=== PATIENT | female | born 1980 | race African-American/Black ===

== ENCOUNTER 2018-05-13 05:10 | Day surgery (SDC) | payer OTHER ==
[2018-05-11 13:07] VITALS: BMI 42.5
[2018-05-13] MEDS ORDERED: DEXAMETHASONE SOD PHOSPHATE 4 MG/1 ML VIAL ONE (11:07)
[2018-05-13] MEDS ORDERED: LIDOCAINE HCL/PF 2% SDV 5ML VIAL ONE (11:08)
[2018-05-13] MEDS ORDERED: MIDAZOLAM HCL 2 MG/2 ML SINGLE DOSE VIAL ONE (11:08)
[2018-05-13] MEDS ORDERED: PROPOFOL 20 ML ONE ×2 (11:08)
[2018-05-13] MEDS ORDERED: SUCCINYLCHOLINE CHLORIDE 200 MG/10 ML VIAL ONE (11:08)
[2018-05-13] MEDS ORDERED: ACETAMINOPHEN 325 MG TABLET (FP) PO PRN (11:20)
[2018-05-13] MEDS ORDERED: IBUPROFEN 400 MG TABLET (FP) PO PRN (11:20)
--- NOTE | 2018-05-13 11:20 | HP ---
History & Physical Update - History History: No Change - Physical Physical: No Change - Assessment Assessment: No Change - Plan Plan: No Change (No change in HP)
--- NOTE | 2018-05-13 11:24 | OP ---
Operative Note - Note: Operative Date: 05/13/18 Pre-Operative Diagnosis: Endometrial polyp. Menorrhagia Operation: Hysteroscopic myomectomy. Dilation & Curettage Findings: Endometrial polyps Post-Operative Diagnosis: Same as Pre-op Surgeon: Julianna Perez Anesthesia: General Estimated Blood Loss (mls): 20 Operative Report Dictated: Yes
[2018-05-13] MEDS ORDERED: KETOROLAC TROMETHAMINE 30 MG/1 ML VIAL ONE (11:51)
[2018-05-13 13:44] VITALS: TEMP 98.4
[2018-05-13 14:08] VITALS: BP 132/82; PULSE 60
--- NOTE | 2018-05-14 06:24 | OP ---
DATE OF OPERATION: 05/13/2018 PREOPERATIVE DIAGNOSIS: Endometrial polyp, menorrhagia. OPERATION: Hysteroscopic myomectomy and suction dilation and curettage. POSTOPERATIVE DIAGNOSIS: Endometrial polyp, submucosal myoma. SURGEON: Julianna Perez M.D. ANESTHESIA: General. ESTIMATED BLOOD LOSS: 20 mL DESCRIPTION OF PROCEDURE: Patient was taken to the operating room, was placed in dorsal supine position, prepped and draped in the usual sterile fashion. A timeout was performed in accordance with hospital regulation. Speculum was placed in the vagina, anterior lip of cervix was grasped with a single-toothed tenaculum. Cervix was then dilated to accommodate the operative resectoscope. Rectoscope was inserted. Submucosal myoma was seen. The endometrial cavity was reduced endometrial polyps. Cautery of the individual polyps was done and did suction D and C, followed by an anterior submucosal myoma removal myomectomy with hysteroscopic myomectomy performed anterior aspect of the uterus. Portions of myoma were then submitted to Pathology. Suction D and C was then done. Visualization of the cavity revealed a better endometrial cavity. All instruments then removed. Patient tolerated procedure well. JULIANNA PEREZ M.D. [id number]
--- NOTE | 2018-05-14 19:12 | PATH ---
Surgical Pathology Report Patient Name: MARIA A HOLBROOK [facility]. Rec. #: [id number] /Age/Gender: 1980 (Age: 37) / F Account: [id number] Location: [facility] SURGICAL Taken: 05/13/2018 Received: 05/13/2018 Reported: 05/14/2018 Physicians: Julianna Perez M.D. Specimen(s) Received UTERINE CONTENTS AND POLYP Clinical History Menorrhagia, cervical polyp Final Diagnosis POLYP AND CONTENTS OF UTERUS, DILATION AND CURETTAGE: FRAGMENTS OF ENDOMETRIAL POLYP, SCANT SUPERFICIAL MYOMETRIUM, AND BENIGN CERVICAL TISSUE. Electronically Signed Daisy Weems M.D. Gross Description Received in formalin labeled "polyp and contents of uterus," is a 2.3 x 2.0 x 0.3 cm aggregate of blancas pink soft tissue fragments. The formalin is filtered and the specimen is entirely submitted in one cassette. /05/13/2018 saudi/05/13/2018
== END 2018-05-13 14:10 | disposition home or self-care (01) ==
LOC: JASU-SURG 05:10
PROVIDERS: ATTEND Obstetrics & Gynecology
PROC: 0UB98ZZ Excision of Uterus, Via Natural or Artificial Opening Endoscopic (ICD-10-PCS; principal; 2018-05-13 10:30)
PROC: 0UJD8ZZ Inspection of Uterus and Cervix, Via Natural or Artificial Opening Endoscopic (ICD-10-PCS; 2018-05-13 10:30)
DX: D25.0 Submucous leiomyoma of uterus (principal); N84.0 Polyp of corpus uteri
CPT/HCPCS: 36415; 82962; 84703; 86850; 86900; 86901; 88305-TC; 94760

== ENCOUNTER 2025-04-09 16:51 | Emergency (ER) | payer OTHER ==
[2025-04-09 17:12] VITALS: BP 166/91; PULSE 88; RESP 18; TEMP 98.5; BMI 41.8
[2025-04-09] MEDS ORDERED: predniSONE 20 MG TABLET (UD) ONE (17:13)
[2025-04-09] MEDS: predniSONE 20 MG TABLET (UD) PO ONE (17:13)
[2025-04-09] MEDS: ALBUTEROL SO4 HFA INHALER IH ONE (17:33)
[2025-04-09] MEDS ORDERED: ALBUTEROL SO4 HFA INHALER IH SCH (18:00)
== END 2025-04-09 17:33 | disposition home or self-care (01) ==
LOC: FER 16:51
DX: J45.20 Mild intermittent asthma, uncomplicated (principal)
CPT/HCPCS: 99283-25